=== PATIENT | male | born 1955 | race African-American/Black ===

== ENCOUNTER 2022-07-31 03:43 | Emergency (ER) | payer BC ==
--- OUTSIDE RECORDS SUMMARY | 2022-07-31 03:51 | XMS REPORT | Continuity of Care Document ---
:1955 Author Organization [facility] t Address [address] [place] [address] Care Team Providers Name Role Phone Asked, No Pcp Primary Care Physician Unavailable NAOMI LOWE Attending Clinician Unavailable SERENE PINA Attending Clinician Unavailable NAOMI LOWE Admitting Clinician Unavailable Problems This patient has no known problems. Allergies, Adverse Reactions, Alerts Allergy Allergy Status Severity Reaction(s) Onset Inactive Treating Comm ents Source Name Type Date Date Clinician Andreina Cox Active Rash 2019-08 [facility] to [facility] adverse 00:00: Hospita reaction 00 l s to drug Social History Social Habit Start Date Stop Date Quantity Comments Source History SDDC Religion Alcohol Std Hospital Drinks History [facility] Religion Alcohol Binge Hospital Tobacco use and 2020-08-14 2020-08-14 Smokeless tobacco [facility] exposure 00:00:00 00:00:00 non-user Hospital Alcohol intake 2020-08-14 2020-08-14 Lifetime Religion 00:00:00 00:00:00 non-drinker Hospital (finding) History SDOH 2020-08-14 2020-08-14 1 Religion Alcohol Frequency 00:00:00 00:00:00 Hospita l Sex Ass[birth year] Religion 00:00:00 00:00:00 Hospital Smoking Status Start Date Stop Date Source Never smoked tobacco Religion H ospital Medications Ordered Filled Start Stop Current Ordering Indication Dosage Frequency Signature Comments Components Source Medication Medication Date Date Medication? Clinician (SIG) Name Name No known 2019-08 No No known Metho di medications 2-[address] 01:44: s Hospita 33 l Procedures This patient has no known procedures. Plan of Care Planned Activity Planned Date Details Comments Source Future Scheduled 2022-06-28 HEPATITIS B VACCINES [facility] Test 09:29:40 (1 of 3 - 3-dose series) [code = HEPATITIS B VACCINES (1 of 3 - 3-dose series)] Future Scheduled 2022-06-28 COVID-19 VACCINE (#1) [facility] Test 09:29:40 [code = COVID-19 VACCINE (#1)] Future Scheduled 2022-06-28 Hepatitis C screening [facility] Test 09:29:40 (procedure) [code = [id number]] Future Scheduled 2022-06-28 COLONOSCOPY SCREENING [facility] Test 09:29:40 [code = COLONOSCOPY SCREENING] Future Scheduled 2022-06-28 SHINGLES VACCINES (1 [facility] Test 09:29:40 of 2) [code = SHINGLES VACCINES (1 of 2)] Future Scheduled 2022-06-28 65[facility] [facility] Test 09:29:40 VACCINE (2 - PPSV23 if available, else PCV20) [code = 65+ PNEUMOCOCCAL VACCINE (2 - PPSV23 if available, else PCV20)] Future Scheduled 2022-06-28 INFLUENZA VACCINE [facility] Test 09:29:40 [code = INFLUENZA VACCINE] Encounters Start End Encounter Admission Attending Care Care Encounter Source Date/Time Date/Time Type Type Clinicians Facility Department ID 2021-03-31 2021-03-31 Outpatient [facility] [id number] [facility] 09:28:00 23:59:00 [facility] 2020-08-13 2020-08-14 [facility] [id number] 00:00:00 00:00:00 SERENE [address] Results This patient has no known results.
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
[2022-07-31 17:33] VITALS: BP 132/82; TEMP 98.2; O2SAT 98
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
== END 2022-07-31 06:03 | disposition home or self-care (01) ==
LOC: ER 03:43
DX: S09.93XA Unspecified injury of face, initial encounter (principal)
CPT/HCPCS: 70480; 76377; 99283